=== PATIENT | female | born 1975 | race Two or more races ===

== ENCOUNTER → 2021-03-19 | Outpatient (CLI) | payer OTHER ==
--- NOTE | 2021-03-19 14:56 | KCIC ---
EXAMINATION: Magnetic resonance imaging (MRI) of the lumbar spine without contrast 03/19/2021 11:14 AM HISTORY: Lumbago. Chronic low back pain with worsening left leg sciatica. Pain from hip down. TECHNIQUE: Multiplanar multi-weighted MRI of the lumbar spine was performed without intravenous contr ast using the standard lumbar spine protocol. Contrast information: None administered. COMPARISON: None available. FINDINGS: The alignment of the lumbar spine is normal. Vertebral bodies demonstrate normal signal intensity on all sequences. There are no compression fractures. The conus medullaris terminates at the level of T12-L1. The distal spinal cord signal intensity is normal. There is mild disc height loss at L4-L5 with disc desiccation. There is disc desiccation at L3-L4 and L2-3. Annular fissures identified at L3 -L4 and L4-L5 Limited views of the abdomen and pelvis show no soft tissue abnormality. The aorta is normal. L1-L2: The disc is normal in configuration. There is no facet arthropathy. There is no neuroforaminal stenosis. There is no spinal canal stenosis. L2-L3: The disc is normal in configuration. There is no facet arthropathy. There is no neuroforaminal stenosis. There is no spinal canal stenosis. L3-L4: There is a disc bulge with central disc protrusion. Moderate right and mild left facet arthrop athy. There is a synovial cyst identified on the right projecting anteromedially from the right facet joint measuring 7 x 5 mm. Findings result in moderate spinal canal stenosis with narrowing the right lateral recess. Mild neural foraminal stenosis. L4-L5: There is a disc bulge with central disc extrusion. Mild to moderate facet arthropathy. Mild to moderate bilateral neuroforaminal stenosis. Mild spinal canal stenosis, exacerbated by epidural lipo matosis. L5-S1: Disc bulge with right foraminal disc protrusion. There is mild facet arthropathy. There is mil d right neuroforaminal stenosis. There is no spinal canal stenosis. IMPRESSION: Mild to moderate degenerative changes of the lumbar spine as described in detail above. Electronically signed by: Juliann Renteria MD (03/19/2021 2:53 PM) [id number]
== END ==
LOC: KCIC MRI 10:34
PROVIDERS: ATTEND Neurological Surgery
DX: M47.26 Other spondylosis with radiculopathy, lumbar region (principal); M51.27 Other intervertebral disc displacement, lumbosacral region; M48.8X7 Other specified spondylopathies, lumbosacral region; M48.07 Spinal stenosis, lumbosacral region
CPT/HCPCS: 72148